=== PATIENT | female | born 1965 | race Two or more races ===

== ENCOUNTER → 2017-12-14 | Outpatient (REF) | payer MEDICAID ==
[2016-08-24 16:50] VITALS: BMI 43.2
[~2017-12-14] MED LIST: ALB6.7R INH; ALBU1.257 IH; ASPI-757 PO; ATOR10TA65 PO; BENZ100C4 PO; BUDE10.2 IH; BUPR-472 PO; BUTA1CAP51 PO; CELE-1 PO; CEP500 PO; CETI-169 PO; CIPR-245 PO; CYC10 PO; DIA5 PO; DICL-195 PO; DIV500 PO; DULERAPT IH; FAMO-67 PO; FAMO20TA28 PO; FEN145 PO; FLUO-202 PO; FLUO40CA76 PO; FLUO60TA PO; FLUT16SP19 NS; GABA-549 PO; GEMF600T91 PO; HCTZ25 PO; HYDR-4225 PO; HYDR-4309 PO; HYDR-6016 PO; IBUP600T22 PO; IBUP800T37 PO; IMIP10TA17 PO; LIRA0.6P3 SQ; LOR5 PO; LOR5/325 PO; LOR7.5/325 PO; MEPE50TA30 PO; METF-410 PO; NARA2.5T2 PO; OXY20 PO; OXYB10TA16 PO; OXYB10TA21 PO; OXYC-373 PO; OXYC-865 PO; OXYC-866 PO; PER PO; PHEN200T32 PO; PRED20TA6 PO; PREG50CA48 PO; PROAIRPT IH; RANI-366 PO; SUMA100T32 PO; TIZA4CAP3 PO; VERA120C9 PO; [UNRECOGNIZED DRUG - CODE] PO; [UNRECOGNIZED DRUG - OTHER] PO
[2017-12-14 12:30] LABS: PLATELET COUNT, AUTOMATED 290 K/uL (150-450)
== END ==
LOC: ZZSENDIN 12:14
PROVIDERS: ATTEND Physician Assistant
DX: G89.28 Other chronic postprocedural pain (principal)
CPT/HCPCS: 85025

== ENCOUNTER → 2018-03-20 | Outpatient (REF) | payer MEDICAID ==
[2016-08-24 16:50] VITALS: BMI 43.2
[~2018-03-20] MED LIST changes: -METF-410 PO; +METF-411 PO
== END ==
LOC: ZZSENDIN 15:22
PROVIDERS: ATTEND Physician Assistant
DX: Z01.818 Encounter for other preprocedural examination (principal)
CPT/HCPCS: 85651; 86140